=== PATIENT | female | born 1995 | race Caucasian/White ===

== ENCOUNTER 2018-04-01 13:34 | Emergency (ER) | payer BC, OTHER ==
[~2018-04-01] VITALS: Ht 152.4 cm; Wt 123.4 kg
[~2018-04-01 13:34] MED LIST: BACTRIM DS TAB1 EACH PO; NOHOMEMEDICATIONS; PERCOCET 5-3251 EACH PO
[2018-04-01 13:56] LABS: URINE BILIRUBIN NEGATIVE (Negative); URINE BLOOD TRACE (Negative); URINE CLARITY SL CLOUDY; URINE COLOR YELLOW; URINE GLUCOSE-RANDOM NEGATIVE (Negative); URINE KETONES NEGATIVE (Negative); URINE NITRITE-REFLEX NEGATIVE (Negative); URINE PROTEIN 1+ (Negative); URINE SPECIFIC GRAVITY 1.025 (1.005-1.030); URINE UROBILINOGEN 0.2 E.U./dl (0.2-1.0)
[2018-04-01 13:57] LABS: URINE LEUKOCYTES-REFLEX 2+ (Negative)
[2018-04-01 14:07] LABS: ABSOLUTE BASOPHILS 0.1 thou/uL (0.0-0.2); ABSOLUTE EOSINOPHILS 0.1 thou/uL (0.0-0.7); ABSOLUTE LYMPHOCYTES 2.3 thou/uL (0.8-5.3); ABSOLUTE MONOCYTES 0.6 thou/uL (0.0-1.2); ABSOLUTE NEUTROPHILS 8.5 thou/uL (1.6-8.1); BASOPHILS 0.9 %; EOSINOPHILS 0.7 %; HEMATOCRIT 40.4 % (37.0-47.0); HEMOGLOBIN 13.5 gm/dL (12.0-15.0); LYMPHOCYTES 19.9 %; MCH 28.6 pg (26.0-34.0); MCHC 33.4 g/dL (28.0-37.0); MCV 85.7 fL (80.0-100.0); MONOCYTES 5.3 %; MPV 7.2 fl. (7.2-11.1); NUCLEATED RBCS 0 /100WBC; PLATELET COUNT* 330 thou/uL (150-400); POLYS 73.2 %; RBC 4.72 mil/uL (4.20-5.00); RDW-CV 14.3 % (10.5-14.5); WBC 11.6 thou/uL (4.0-11.0)
[2018-04-01 14:11] LABS: SQUAMOUS >10 Many /LPF (0-3); URINE WBC-REFLEX >25 Many /HPF (0-5)
[2018-04-01 14:11] LABS: CALCIUM 8.8 mg/dL (8.5-10.1); CREATININE 0.9 mg/dL (0.6-1.3); POTASSIUM 3.8 mmol/L (3.5-5.1)
[2018-04-01 14:12] LABS: BACTERIA-REFLEX >30 Many /HPF (None Seen); CASTS None Seen /LPF (None Seen); CRYSTALS None Seen /LPF (None Seen)
[2018-04-01 14:13] LABS: URINE RBC 3-10 Few /HPF (0-2)
[2018-04-01 14:16] LABS: ALBUMIN 3.5 g/dL (3.4-5.0); TOTAL BILIRUBIN 0.5 mg/dL (<0.1-1.0); TOTAL PROTEIN 7.5 g/dL (6.4-8.2)
[2018-04-01] MEDS ORDERED: BACTRIM DS TAB1 EACH PO (14:26)
[2018-04-01 14:33] VITALS: BP 153/97
== END 2018-04-01 14:34 | disposition home or self-care (01) ==
LOC: M.ERS 13:34
PROVIDERS: Nurse Practitioner Family
DX: L05.91 Pilonidal cyst without abscess (principal); N30.90 Cystitis, unspecified without hematuria

== ENCOUNTER 2018-04-09 07:15 | Emergency (ER) | payer BC, OTHER ==
[~2018-04-09] VITALS: Ht 152.4 cm; Wt 122.5 kg
[2018-04-09] MEDS ORDERED: NORCO 5-325 TA1 EACH PO (08:08)
[2018-04-09] MEDS ORDERED: DOXYCYCLINE 10100 MG PO (08:08)
[2018-04-09 08:24] VITALS: BP 141/70
== END 2018-04-09 08:25 | disposition home or self-care (01) ==
LOC: M.ERS 07:15
DX: L02.31 Cutaneous abscess of buttock (principal); Z88.1 Allergy status to other antibiotic agents

== ENCOUNTER 2020-04-20 20:34 | Emergency (ER) | payer OTHER ==
[~2020-04-20] VITALS: Ht 152.4 cm; Wt 117.9 kg
[~2020-04-20 20:34] MED LIST changes: +DOXYCYCLINE 10100 MG PO; +NORCO 5-325 TA1 EACH PO
[2020-04-20] MEDS ORDERED: CIPROFLOXIN HC2.5 M1 OTIC ×2 (21:12→21:19)
[2020-04-20] MEDS ORDERED: KEFLEX500 M1 PO ×2 (21:12→21:19)
[2020-04-20] MEDS ORDERED: PEPCID20 MG PO ×2 (21:12→21:19)
[2020-04-20 21:51] VITALS: BP 144/88
== END 2020-04-20 21:52 | disposition home or self-care (01) ==
LOC: M.ERS 20:34
DX: H60.93 Unspecified otitis externa, bilateral (principal); H66.93 Otitis media, unspecified, bilateral; R12 Heartburn; K21.9 Gastro-esophageal reflux disease without esophagitis; Z88.1 Allergy status to other antibiotic agents; Z88.8 Allergy status to other drugs, medicaments and biological substances; Z98.890 Other specified postprocedural states

== ENCOUNTER 2020-04-24 17:28 | Emergency (ER) | payer OTHER ==
[~2020-04-24] VITALS: Ht 152.4 cm; Wt 117.9 kg
[~2020-04-24 17:28] MED LIST changes: +CIPROFLOXIN HC2.5 M1 OTIC; +KEFLEX500 M1 PO; +PEPCID20 MG PO
[2020-04-24 18:17] LABS: ABSOLUTE BASOPHILS 0.1 thou/uL (0.0-0.2); ABSOLUTE LYMPHOCYTES 1.7 thou/uL (0.8-5.3); ABSOLUTE MONOCYTES 0.5 thou/uL (0.0-1.2); ABSOLUTE NEUTROPHILS 7.3 thou/uL (1.6-8.1); BASOPHILS 0.6 %; EOSINOPHILS 0.2 %; HEMATOCRIT 41.9 % (37.0-47.0); HEMOGLOBIN 14.1 gm/dL (12.0-15.0); LYMPHOCYTES 17.5 %; MCH 29.7 pg (26.0-34.0); MCHC 33.8 g/dL (28.0-37.0); MCV 87.9 fL (80.0-100.0); MONOCYTES 5.3 %; MPV 7.6 fl. (7.2-11.1); NUCLEATED RBCS 0 /100WBC; PLATELET COUNT* 298 thou/uL (150-400); POLYS 76.4 %; RBC 4.76 mil/uL (4.20-5.00); RDW-CV 13.6 % (10.5-14.5); WBC 9.6 thou/uL (4.0-11.0)
[2020-04-24 18:28] LABS: CALCIUM 8.9 mg/dL (8.5-10.1); CREATININE 0.9 mg/dL (0.6-1.3)
[2020-04-24 18:33] LABS: ALBUMIN 3.9 g/dL (3.4-5.0); TOTAL BILIRUBIN 0.6 mg/dL (<0.1-1.0); TOTAL PROTEIN 7.8 g/dL (6.4-8.2)
[2020-04-24 19:03] VITALS: BP 125/63
--- NOTE | 2020-04-26 07:36 | EKG ---
[place] [address] ELECTROCARDIOGRAM REPORT Name: WARRENANAT RICHIE Room: [facility]#: [id number] Admission: 04/24/20 Attend Phys: Discharge: 04/24/20 Date of : [birth year] Date of Service: 04/24/201737 Report #: [id number] THIS REPORT FOR: //name// [facility] ED Test Date: 2020-04-24 Test Time: 17:38:47 Pat Name: ANAT KELLEY Department: Room: Gender: F [employer] Administrator: Fina : 1995 Requested By: Ellyn Resendiz Order Number: [id number] MD: Ethan Sahni Measurements Intervals [place] Rate: 72 P: 47 VT: 120 QRS: 24 QRSD: 84 T: 30 QT: 378 QTc: 414 Interpretive Statements Sinus rhythm No previous ECG available for comparison Electronically Signed On 04-26-2020 7:36:16 CDT by Ethan Sahni [email or web address] <ELECTRONICALLY SIGNED> By: Ethan Sahni MD, [facility] 04/26/20 0736 [id number] 173 Ethan Sahni MD, FACC /EPI
== END 2020-04-24 19:03 | disposition home or self-care (01) ==
LOC: M.ERS 17:28
PROVIDERS: Physician Assistant
DX: R07.89 Other chest pain (principal); R11.0 Nausea; K21.9 Gastro-esophageal reflux disease without esophagitis; Z79.899 Other long term (current) drug therapy; Z88.2 Allergy status to sulfonamides; Z88.1 Allergy status to other antibiotic agents

== ENCOUNTER 2020-08-02 12:55 | Emergency (ER) | payer OTHER ==
[~2020-08-02] VITALS: Ht 154.9 cm; Wt 117.9 kg
[2020-08-02 13:44] VITALS: BP 152/84
== END 2020-08-02 13:44 | disposition home or self-care (01) ==
LOC: M.ERS 12:55
DX: F41.9 Anxiety disorder, unspecified (principal); Z88.1 Allergy status to other antibiotic agents; Z88.2 Allergy status to sulfonamides

== ENCOUNTER 2021-04-17 17:36 | Emergency (ER) | payer OTHER ==
[~2021-04-17] VITALS: Ht 160 cm; Wt 108.9 kg
[2021-04-17 17:43] VITALS: BP 145/98
[2021-04-17] MEDS ORDERED: ACID CONTROLLER20 MG PO (17:45)
[2021-04-17] MEDS ORDERED: AMOXICILLIN 50500 MG PO (18:04)
[2021-04-17] MEDS ORDERED: TRAMADOL 50 MG50 MG PO (18:04)
== END 2021-04-17 18:22 | disposition home or self-care (01) ==
LOC: M.ERS 17:36
DX: K02.9 Dental caries, unspecified (principal); Z88.1 Allergy status to other antibiotic agents; Z88.2 Allergy status to sulfonamides

== ENCOUNTER 2021-05-18 08:50 | Emergency (ER) | payer OTHER ==
[~2021-05-18] VITALS: Ht 157.5 cm; Wt 124.7 kg
[~2021-05-18 08:50] MED LIST changes: +ACID CONTROLLER20 MG PO; +AMOXICILLIN 50500 MG PO; +TRAMADOL 50 MG50 MG PO
[2021-05-18] MEDS ORDERED: AMOXICILLIN 50500 MG PO (10:19)
[2021-05-18] MEDS ORDERED: NAPROSYN500 MG PO (10:19)
[2021-05-18] MEDS ORDERED: ZOFRAN ODT4 MG PO (10:19)
[2021-05-18 10:29] VITALS: BP 134/68
== END 2021-05-18 10:29 | disposition home or self-care (01) ==
LOC: M.ERS 08:50
DX: K02.9 Dental caries, unspecified (principal); Z88.2 Allergy status to sulfonamides; Z88.6 Allergy status to analgesic agent

== ENCOUNTER 2021-07-17 11:10 | Emergency (ER) | payer OTHER ==
[~2021-07-17] VITALS: Ht 152.4 cm; Wt 127.0 kg
[~2021-07-17 11:10] MED LIST changes: +NAPROSYN500 MG PO; +ZOFRAN ODT4 MG PO
[2021-07-17 11:59] LABS: ABSOLUTE BASOPHILS 0.1 thou/uL (0.0-0.2); ABSOLUTE EOSINOPHILS 0.1 thou/uL (0.0-0.7); ABSOLUTE LYMPHOCYTES 1.5 thou/uL (0.8-5.3); ABSOLUTE MONOCYTES 0.5 thou/uL (0.0-1.2); ABSOLUTE NEUTROPHILS 7.1 thou/uL (1.6-8.1); BASOPHILS 0.9 %; EOSINOPHILS 0.8 %; HEMATOCRIT 36.1 % (37.0-47.0); HEMOGLOBIN 12.2 gm/dL (12.0-15.0); LYMPHOCYTES 16.3 %; MCHC 33.8 g/dL (28.0-37.0); MCV 85.9 fL (80.0-100.0); MONOCYTES 5.1 %; MPV 6.8 fl. (7.2-11.1); NUCLEATED RBCS 0 /100WBC; PLATELET COUNT* 285 thou/uL (150-400); POLYS 76.9 %; RBC 4.21 mil/uL (4.20-5.00); RDW-CV 13.5 % (10.5-14.5); WBC 9.3 thou/uL (4.0-11.0)
[2021-07-17 12:07] LABS: CALCIUM 8.6 mg/dL (8.5-10.1); CREATININE 0.9 mg/dL (0.6-1.3); POTASSIUM 3.6 mmol/L (3.5-5.1)
[2021-07-17 12:11] LABS: ALBUMIN 3.2 g/dL (3.4-5.0); TOTAL BILIRUBIN 0.3 mg/dL (<0.1-1.0); TOTAL PROTEIN 6.9 g/dL (6.4-8.2)
[2021-07-17 15:40] VITALS: BP 110/54
== END 2021-07-17 15:40 | disposition short-term general hospital (02) ==
LOC: M.ERS 11:10
PROVIDERS: Physician Assistant
DX: M54.2 Cervicalgia (principal); N64.4 Mastodynia; M25.531 Pain in right wrist; Z34.90 Encounter for supervision of normal pregnancy, unspecified, unspecified trimester; Z88.2 Allergy status to sulfonamides; Z88.1 Allergy status to other antibiotic agents; Z88.6 Allergy status to analgesic agent; V49.49XA Driver injured in collision with other motor vehicles in traffic accident, initial encounter; Y93.89 Activity, other specified; Y92.89 Other specified places as the place of occurrence of the external cause; Y99.8 Other external cause status